=== PATIENT | female | born 1980 | race Caucasian/White ===

== ENCOUNTER 2020-07-31 21:49 | Emergency (ER) | payer OTHER ==
[2020-07-31] MEDS ORDERED: LORazepam 2 MG/ML SDV IVPUSH STA (22:28)
--- NOTE | 2020-07-31 22:31 | EDM.PDOC ---
ED HPI GENERAL MEDICAL PROBLEM - General Chief Complaint: Neurological Problem Stated Complaint: [facility] Time Seen by Provider: 07/31/20 22:06 Source of Information: Reports: Patient, RN Notes Reviewed History Limitations: Reports: No Limitations - History of Present Illness INITIAL COMMENTS - FREE TEXT/NARRATIVE: Mrs. Nunez is a very pleasant 40-year-old woman who is now brought to the ED by EMS after suffering a possible seizure at home around 21:30 tonight. The patient's , who spoke to the triage nurse by telephone, stated that he heard a thud, then found the patient having a seizure-like episode, including foaming at the mouth. He estimated that the episode lasted about 6 minutes, after which time the patient was confused. From the patient's perspective, she recalls standing in her kitchen, then the next thing she knew, she was on the floor and her sister was yelling at her. The patient's sister lives a couple of blocks from her, and her had called her. The patient states that she did not bite her tongue, and she was not incontinent of either bowel or bladder. The patient has never previously had a seizure. She drinks alcohol on occasion, but none recently. The patient states that she has not previously undergone an imaging study of her head. Here in the ED the patient is found to be hemodynamically stable, afebrile, saturating 100% on room air. She is alert, but emotionally upset. Prior to amina's event, the patient denies having a recent fever, chills, sore throat, ear pain, nasal or sinus congestion, cough, dyspnea, chest pain, palpitations, nausea, vomiting, constipation, diarrhea, abdominal pain, urinary symptoms, recent weight gain or weight loss, recent bloody bowel movements or black bowel movements, recent joint aches, headaches, or rashes. The patient's PCP is BRENT Aguillon. Her Lead Injection Mold Technician is Dr. Arslan Crocker. She already received an influenza vaccine this season. - Related Data Allergies Allergy/AdvReac Type Severity Reaction Status Date / Time hydrochlorothiazide Allergy Cannot Verified 07/31/20 22:07 Remember Past Medical History Endocrine/Metabolic History: Reports: Obesity/BMI 30+ - Past Surgical History HEENT Surgical History: Reports: Oral Surgery (dental extractions) Female Surgical History: Reports: Section (x 1) Musculoskeletal Surgical History: Reports: Arthroscopic Knee (right, 2017) Social & Family History - Tobacco Use Tobacco Use Status *Q: Current Every Day Tobacco User Years of Tobacco use: 20 Packs/Tins Daily: 0.2 - Caffeine Use Caffeine Use: Reports: Coffee, Soda - Alcohol Use Alcohol Use History: Yes Alcohol Use Frequency: Rarely - Recreational Drug Use Recreational Drug Use: Yes Drug Use in Last 12 Months: No Recreational Drug Type: Reports: Marijuana/Hashish (last smoked when 15 yrs old) - Living Situation & Occupation Living situation: Reports: , with Spouse, with Family (21 yr old daughter) 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 - Physical Exam Exam: See Below Exam Limited By: No Limitations General Appearance: Alert, WD/WN, No Apparent Distress Eye Exam: Bilateral Eye: EOMI, Normal Inspection, PERRL Ears: Normal External Exam, Normal Canal, Hearing Grossly Normal, Normal TMs Nose: Normal Inspection, Normal Mucosa, No Blood Throat/Mouth: Normal Inspection, Normal Lips, Normal Teeth, Normal Gums, Normal Oropharynx, Normal Voice, No Airway Compromise Head Exam: Atraumatic, Normocephalic Neck: Normal Inspection, Supple, Non-Tender, Full Range of Motion Respiratory/Chest: No Respiratory Distress, Lungs Clear, Normal Breath Sounds, No Accessory Muscle Use Cardiovascular: Normal Peripheral Pulses, Regular Rate, Rhythm, No Edema, No Gallop, No JVD, No Murmur, No Rub GI/Abdominal: Normal Bowel Sounds, Soft, Non-Tender, No Organomegaly, No Distention, No Abnormal Bruit, No Mass Neuro Exam (Abbreviated): Alert, Oriented, CN II-XII Intact, Normal Cognition, No Motor/Sensory Deficits Back Exam: Normal Inspection, Full Range of Motion, NT Extremities: Normal Inspection, Normal Range of Motion, No Pedal Edema, Normal Capillary Refill Psychiatric: Tearful Skin Exam: Warm, Dry, Intact, Normal Color, No Rash Course - Vital Signs Last Recorded V/S: Last Vital Signs Temp 36.2 C 07/31/20 21:54 Pulse 94 07/31/20 21:54 Resp 14 07/31/20 21:54 BP 139/71 07/31/20 21:54 Pulse Ox 100 07/31/20 21:54 - Orders/Labs/Meds Labs: Laboratory Tests 07/31/20 07/31/20 07/31/20 Range/Units 22:43 22:43 23:19 WBC 7.58 (3.98-10.04) K/mm3 RBC 3.83 L (3.98-5.22) M/mm3 Hgb 12.1 (11.2-15.7) gm/dl Hct 38.4 (34.1-44.9) % MCV 100.3 H (79.4-94.8) fl MCH 31.6 (25.6-32.2) pg MCHC 31.5 L (32.2-35.5) g/dl RDW Std Deviation 45.3 (36.4-46.3) fL Plt Count 263 (182-369) K/mm3 MPV 9.0 L (9.4-12.3) fl Neutrophils % (Manual) 66 H (40-60) % Band Neutrophils % 0 (0-10) % Lymphocytes % (Manual) 32 (20-40) % Atypical Lymphs % 0 % Monocytes % (Manual) 1 L (2-10) % Eosinophils % (Manual) 1 (0.7-5.8) % Basophils % (Manual) 0 L (0.1-1.2) Platelet Estimate Adequate RBC Morph Comment Normal Sodium 132 L (136-145) mEq/L Potassium 3.9 (3.5-5.1) mEq/L Chloride 98 (98-107) mEq/L Carbon Dioxide 27 (21-32) mEq/L Anion Gap 10.9 (5-15) BUN 14 (7-18) mg/dL Creatinine 1.2 H (0.55-1.02) mg/dL Est Cr Clr Drug Dosing 57.75 mL/min Estimated GFR (MDRD) 50 (>60) mL/min BUN/Creatinine Ratio 11.7 L (14-18) Glucose 84 (74-106) mg/dL Calcium 8.9 (8.5-10.1) mg/dL Phosphorus 2.2 L (2.6-4.7) mg/dL Magnesium 2.0 (1.8-2.4) mg/dl Total Bilirubin 0.2 (0.2-1.0) mg/dL AST 16 (15-37) U/L ALT 21 (14-59) U/L Alkaline Phosphatase 104 (46-116) U/L Creatine Kinase 95 (26-192) U/L Total Protein 7.4 (6.4-8.2) g/dl Albumin 3.6 (3.4-5.0) g/dl Globulin 3.8 gm/dL Albumin/Globulin Ratio 1.0 (1-2) Urine Opiates Screen Presumptive positive H (LCWLSJ=059) Ur Buprenorphine Scrn Negative (CUTOFF=10) Ur Oxycodone Screen Negative (DZM8KF=268) Urine Methadone Screen Negative (BIBJMN=469) Ur Propoxyphene Screen Negative (TTQHBL=456) Ur Barbiturates Screen Negative (PMVJMQ=993) Ur Tricyclics Screen Negative (KBNKMK=008) Ur Phencyclidine Scrn Negative (CUTOFF=25) Ur Amphetamine Screen Presumptive positive H (HSGCZZ=389) U Methamphetamines Scrn Negative (TPSYLL=174) U Benzodiazepines Scrn Negative (GXWZGZ=552) U Cocaine Metab Screen Negative (TIJNYP=168) U Marijuana (THC) Screen Negative (CUTOFF=50) Ethyl Alcohol 0.00 (0.00) gm% Meds: Medications Discontinued Medications Generic Name Dose Route Start Last Admin Trade Name Freq PRN Reason Stop Dose Admin Lorazepam 1 mg 07/31/20 22:28 07/31/20 22:42 Ativan IVPUSH 07/31/20 22:29 1 mg ONETIME STA Administration Sodium Phosphate 250 mg 07/31/20 23:38 08/01/20 00:52 Neutra-Phos PO 07/31/20 23:39 250 mg ONETIME ONE Administration - Re-Assessments/Exams Free Text/Narrative Re-Assessment/Exam: 07/31/20 22:28 As above, the patient's 's description of events, as relayed to the triage nurse, certainly sounds like she had a genuine seizure tonight. At this time, she she is alert, oriented, but frightened about what happened to her. She has no recollection of the event at all. Her neurologic exam is completely normal. I have ordered an evaluation including a CT of the head without contrast, several blood tests, and a urine drug screen. In the meantime, the patient will be given IV Ativan, to help calm her anxiety, as well as to decrea se the likelihood of having another seizure here in the ED. 07/31/20 23:12 CT of the head without contrast is read by Rolando as: 1. Normal CT appearance of the brain. 2. Mild right parietal scalp soft tissue swelling. 08/01/20 00:27 The patient's phosphorus level is mildly depressed at 2.2. Her CBC, CMP, magnesium level, CPK, and EtOH level are all within normal limits /negative. Her urine drug screen is positive for both opiates and amphetamines. Based on the above, I have ordered 250 mg of oral Neutra-Phos. 08/01/20 00:41 Test results discussed with the patient. While her 's description of the event certainly sounds like a genuine epileptic seizure, her labs are not consistent with that, and that her WBC count is not elevated, she is not hyperglycemic, and her CPK is within normal limits. With respect to her positive drug screen, she states that she was prescribed tramadol 2 or 3 years ago by her PCP, for knee pain. She believes that the last time she took it was last Thursday. With respect to the amphetamines, she states that she has been taking some xkhq-alz-dwmeker cold preparations for nasal congestion, but is not really sure how that could result positive. Going forward, I am recommending that the patient not take either tramadol or any eykq-irr-rvndmhs cold remedies, as both can lower seizure threshold. I will give her a number for a Neurology midlevel in [place], and have her follow-up at the next available appointment. Departure - Departure Time of Disposition: 00:42 Disposition: Home, Self-Care 01 Condition: Good Clinical Impression: Seizure-like activity, Hypophosphatemia - Discharge Information *PRESCRIPTION DRUG MONITORING PROGRAM REVIEWED*: Not Applicable *COPY OF PRESCRIPTION DRUG MONITORING REPORT IN PATIENT CLARA: Not Applicable Instructions: Seizure, Adult, [id number] Referrals: Genesis Ness PA-C [Primary Care Provider] - Forms: ED Department Discharge Additional Instructions: You were seen in the emergency room after suffering a likely seizure at home. Work-up in the ER included several blood tests, a urine drug screen, and a CT of your head without contrast. Your phosphate level was found to be mildly low at 2.2. You were given replacement Neutra-Phos in the ER. Your urine drug screen returned positive for both opiates and amphetamines. The opiates are likely due to the tramadol that you have been taking, although it is unclear the source of the amphetamines. The remainder of your work-up was unremarkable. Going forward, we recommend that you avoid taking tramadol and any nffx-dgc-aahnljf cold remedies, as both of these could reduce seizure threshold. We recommend that you follow-up with the Neurology midlevel Cathleen Leary DNP, at [facility], at the next available appointment. Please call [phone] to make an appointment. If any other problems, please do not hesitate to return to the ER. Sepsis Event Note (ED) - Evaluation Sepsis Screening Result: No Definite Risk
[2020-07-31] MEDS ORDERED: Phosphorus #1 250 MG Tab PO ONE (23:38)
--- NOTE | 2020-08-01 08:34 | CT ---
Head CT Technique: Multiple axial sections were obtained through the brain. Intravenous contrast was utilized. Comparison: No prior intracranial imaging is available. Findings: Ventricles along with basal cisterns and sulci over the convexities are within normal limits for the patient's age. No abnormal parenchymal densities are seen. No evidence of intracranial hemorrhage. No midline shift or mass-effect is appreciated. Slight areas of mucosal thickening seen with left frontal and ethmoid sinuses which likely are chronic. Visualized mastoid sinuses are clear. No acute calvarial finding is seen. Slight soft tissue swelling is seen within the right parietal scalp. Impression: 1. Findings as noted above. 2. Nothing acute is appreciated on noncontrast head CT study. 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
== END 2020-08-01 01:00 | disposition home or self-care (01) ==
LOC: JD.ED 21:49
DX: R25.9 Unspecified abnormal involuntary movements (principal); E83.39 Other disorders of phosphorus metabolism; E66.9 Obesity, unspecified; Z88.8 Allergy status to other drugs, medicaments and biological substances; F17.210 Nicotine dependence, cigarettes, uncomplicated; Z68.32 Body mass index [BMI] 32.0-32.9, adult
CPT/HCPCS: 36415; 70450; 80053; 80306; 80307; 82550; 83735; 84100; 85007; 85027; 96374; 99285; A9270; J2060

== ENCOUNTER 2024-04-14 09:38 | Emergency (ER) | payer BC ==
[2024-04-14 10:28] LABS: BASOPHILS PERCENT AUTO 0.5 % (0.0-1.0); EOSINOPHILS ABSOLUTE AUTO 0.1 K/mm3 (0.0-0.4); EOSINOPHILS PERCENT AUTO 2.1 % (0.0-6.0); HEMATOCRIT 37.9 % (37.0-47.0); HEMOGLOBIN 12.5 gm/dl (12.0-16.0); IMMATURE GRAN ABSOLUTE AUTO 0.01 K/mm3 (0.00-0.05); IMMATURE GRAN PERCENT AUTO 0.2 % (0.0-0.4); LYMPHOCYTES ABSOLUTE AUTO 1.5 K/mm3 (1.0-4.8); LYMPHOCYTES PERCENT AUTO 26.1 % (24.0-44.0); MEAN CORPUSCULAR HEMOGLOBIN 32.3 pg (28.0-32.0); MEAN CORPUSCULAR VOLUME 97.9 fl (83.0-99.0); MEAN PLATELET VOLUME 9.4 fl (9.4-12.3); MONOCYTES ABSOLUTE AUTO 0.5 K/mm3 (0.0-0.8); MONOCYTES PERCENT AUTO 8.9 % (0.0-8.0); NEUTROPHILS ABSOLUTE AUTO 3.6 K/mm3 (1.8-7.7); NEUTROPHILS PERCENT AUTO 62.2 % (41.0-71.0); PLATELET COUNT,PLT 295 K/mm3 (150-400); RED BLOOD CELL COUNT 3.87 M/mm3 (4.10-5.30); WHITE BLOOD CELL COUNT,WBC 5.71 K/mm3 (3.9-11.3)
[2024-04-14] MEDS: Metoclopramide 10 MG/2 ML SDV IVPUSH ONE (10:39)
[2024-04-14] MEDS: diphenhydrAMINE 50 MG/ML SDV IVPUSH ONE (10:41)
[2024-04-14] MEDS: HYDROmorphone 0.5 MG/0.5 ML Syringe IVPUSH ONE (10:43)
[2024-04-14 10:47] LABS: LACTIC ACID 0.7 mmol/L (0.4-2.0)
[2024-04-14 10:57] LABS: A/G RATIO 0.9 (1-2); ALBUMIN 3.4 g/dl (3.4-5.0); BILIRUBIN TOTAL 0.3 mg/dL (0.2-1.0); BUN/CREATININE RATIO 13.8 (14-18); C-REACTIVE PROTEIN 1.49 mg/dL (<0.30); CALCIUM 8.6 mg/dL (8.5-10.1); CREATININE 0.8 mg/dL (0.55-1.02); EST CRCL DRUG DOSING (CG) 87.27 mL/min; MAGNESIUM 1.8 mg/dL (1.8-2.4); PROTEIN TOTAL,TP 7.2 g/dl (6.4-8.2)
[2024-04-14] MEDS: Dextrose 5%-0.9% NaCl with KCl 1,000 ML IV SCH (10:58)
[2024-04-14 11:36] LABS: APPEARANCE,URINE CLEAR (Clear); BILIRUBIN,URINE NEGATIVE (Negative); COLOR,URINE YELLOW (Yellow); GLUCOSE,URINE NEGATIVE (Negative); KETONES,URINE NEGATIVE (Negative); LEUKOCYTE ESTERASE,URINE NEGATIVE (Negative); NITRITE,URINE NEGATIVE (Negative); OCCULT BLOOD,URINE TRACE-LYSED (Negative); PROTEIN,URINE NEGATIVE (Negative); UROBILINOGEN,URINE 0.2 (0.2-1.0)
[2024-04-14 11:41] LABS: BACTERIA,URINE FEW /hpf (FEW); EPITHELIAL CELLS,URINE 0-5 /hpf (0-5); MUCUS,URINE RARE /hpf (FEW); WBC,URINE 0-5 /hpf (0-5)
== END 2024-04-14 13:30 | disposition home or self-care (01) ==
LOC: SUPCPDRO 09:38 → MERGE 09:38 → JD.ED 09:38
DX: R55 Syncope and collapse (principal); Z79.899 Other long term (current) drug therapy; Z88.8 Allergy status to other drugs, medicaments and biological substances
CPT/HCPCS: 36415; 70450; 72125; 80053; 80307; 81001; 82947; 83605; 83735; 84484; 85025; 86140; 93005; 96365; 96366; 96375; 99284; J1170; J1200; J2765; J3480; 93010